=== PATIENT | female | born 1980 | race American Indian/Alaskan Native ===

== ENCOUNTER 2023-02-28 15:51 | Emergency (ER) | payer BC, MEDICAID ==
[2023-02-28] MEDS ORDERED: Gentamicin 0.3% Ophth Soln 5 ML Bottle EYERT SCH ×2 (17:24→21:00)
== END 2023-02-28 17:45 | disposition home or self-care (01) ==
LOC: DL.ED 15:51
DX: H00.011 Hordeolum externum right upper eyelid (principal); I10 Essential (primary) hypertension; E11.9 Type 2 diabetes mellitus without complications; F17.210 Nicotine dependence, cigarettes, uncomplicated
CPT/HCPCS: 99282; 99283; A9270

== ENCOUNTER 2023-07-24 18:14 | Emergency (ER) | payer MEDICAID | END 2023-07-24 18:33 | disposition left against medical advice (07) | LOC: DL.ED 18:14 | DX: Z53.21 Procedure and treatment not carried out due to patient leaving prior to being seen by health care provider (principal) ==